=== PATIENT | male | born 1980 | race Caucasian/White ===

== ENCOUNTER 2022-07-07 15:26 | Observation (INO) ==
[2022-07-07] MEDS ORDERED: DIPHTHERIA/TETANUS ADULT VACCINE 0.5 ML SYRINGE IM ONE (15:48)
[2022-07-07] MEDS ORDERED: CLINDAMYCIN INJ 900 MG/50 ML PREMIX IV STA (15:49)
[2022-07-07] MEDS ORDERED: KETOROLAC 30 MG/1 ML VIAL ONE (16:04)
[2022-07-07 16:07] LABS: Basophils # 0.1 10*3/uL (0.0-0.2); Basophils % 0.5 % (0.0-0.8); Eosinophils # 0.2 10*3/uL (0.0-0.87); Eosinophils % 1.6 % (0.00-10.9); Hematocrit 47.6 VOL% (42.0-52.0); Immature Granulocytes % 0.3 %; Immature Granulocytes Absolute 0.04 #; Lymphocytes # 7.1 10*3/uL (1.4-4.0); Lymphocytes % 55.1 % (21.2-54.2); Mean Corpuscular HGB Conc 35.7 GM/DL (32-36); Mean Corpuscular Volume 91.4 FL (87-102); Mean Platelet Volume 9.8 FL (9.6-12.0); Monocytes # 1.2 10*3/uL (0.11-0.8); Monocytes % 9.3 % (1.7-12.7); Neutrophils % 33.2 % (38.7-73.9); Platelet Count 215 T/CUMM (130-400); Red Blood Count 5.21 MC/CUMM (3.8-5.5); Red Cell Distribution Width 12.3 % (9.3-17.3); White Blood Count 12.9 T/CUMM (4-12)
[2022-07-07] MEDS ORDERED: KETOROLAC 30 MG/1 ML VIAL IV STA (16:27)
[2022-07-07 16:33] LABS: Eosinophils 1 % (0-10); Lymphocytes 57 % (20-55); Platelet Estimate Adequate; Total Cells Counted 100
[2022-07-07] MEDS ORDERED: HYDROmorphone 1 MG/1 ML SYRINGE ONE (16:55)
[2022-07-07] MEDS ORDERED: ONDANSETRON 4 MG/2 ML VIAL ONE (16:55)
[2022-07-07] MEDS ORDERED: ONDANSETRON 4 MG/2 ML VIAL IV PRN (17:01)
[2022-07-07] MEDS ORDERED: ACETAMINOPHEN 325 MG TABLET PO PRN (17:01)
[2022-07-07] MEDS ORDERED: HYDROmorphone 1 MG/1 ML SYRINGE IV STA (17:12)
[2022-07-07] MEDS: DEXTROSE 5% NACL 0.45% 1,000 ML IV SCH (19:00)
[2022-07-07] MEDS: MORPHINE 2 MG/1 ML SYRINGE IV PRN (21:30)
[2022-07-07] MEDS ORDERED: INFLUENZA VIRUS VACCINE 0.5 ML SYRINGE IM ONE (22:01)
[2022-07-07] MEDS: CLINDAMYCIN INJ 600 MG/50 ML PREMIX IV SCH (23:08)
[2022-07-08] MEDS: MORPHINE 2 MG/1 ML SYRINGE IV PRN ×5 (02:09→22:15)
[2022-07-08] MEDS: CLINDAMYCIN INJ 600 MG/50 ML PREMIX IV SCH ×4 (04:02→23:01)
[2022-07-08 04:41] LABS: Basophils % 0.2 % (0.0-0.8); Eosinophils % 0.3 % (0.00-10.9); Hematocrit 39.5 VOL% (42.0-52.0); Hemoglobin 14.5 GM/DL (14.0-18.0); Immature Granulocytes % 0.7 %; Immature Granulocytes Absolute 0.06 #; Lymphocytes # 2.1 10*3/uL (1.4-4.0); Lymphocytes % 24.5 % (21.2-54.2); Mean Corpuscular HGB Conc 36.7 GM/DL (32-36); Mean Corpuscular Volume 91.2 FL (87-102); Mean Platelet Volume 10.1 FL (9.6-12.0); Monocytes # 1.2 10*3/uL (0.11-0.8); Monocytes % 14.1 % (1.7-12.7); Neutrophils % 60.2 % (38.7-73.9); Platelet Count 162 T/CUMM (130-400); Red Blood Count 4.33 MC/CUMM (3.8-5.5); Red Cell Distribution Width 12.4 % (9.3-17.3); White Blood Count 8.6 T/CUMM (4-12)
[2022-07-08 05:03] LABS: Calcium 8.5 MG/DL (8.5-10.1); Osmolality,Calculated 287.1 MOS/KG (273-304)
[2022-07-08] MEDS: DEXTROSE 5% NACL 0.45% 1,000 ML IV SCH ×3 (05:23→22:16)
[2022-07-08] MEDS: PANTOPRAZOLE 40 MG TABLET PO SCH (11:01)
[2022-07-08] MEDS ORDERED: ONDANSETRON 4 MG/2 ML VIAL ONE (11:10)
[2022-07-08] MEDS ORDERED: SEVOFLURANE 1 UNIT/15 MINUTE INH ONE (11:10)
[2022-07-08] MEDS ORDERED: LIDOCAINE 2% 5 ML VIAL ONE (11:10)
[2022-07-08] MEDS ORDERED: propofoL 200 MG/20 ML VIAL IV ONE (11:10)
[2022-07-08] MEDS ORDERED: fentaNYL 100 MCG/2 ML VIAL ONE (11:11)
[2022-07-08] MEDS ORDERED: MIDAZOLAM 2 MG/2 ML VIAL ONE (11:11)
[2022-07-08] MEDS ORDERED: MEPERIDINE 25 MG/1 ML VIAL ONE (11:59)
[2022-07-08] MEDS ORDERED: MEPERIDINE 25 MG/1 ML VIAL IV PRN (12:04)
[2022-07-09] MEDS: MORPHINE 2 MG/1 ML SYRINGE IV PRN ×2 (03:04→06:05)
[2022-07-09] MEDS: CLINDAMYCIN INJ 600 MG/50 ML PREMIX IV SCH ×2 (05:02→09:22)
[2022-07-09] MEDS: DEXTROSE 5% NACL 0.45% 1,000 ML IV SCH ×2 (05:54→12:29)
[2022-07-09 07:58] VITALS: BP 121/78
[2022-07-09] MEDS: PANTOPRAZOLE 40 MG TABLET PO SCH (09:22)
== END 2022-07-09 13:20 | disposition home or self-care (01) ==
LOC: N.EDINP 15:26 → N.ED 15:26 → N.3E 20:51
PROVIDERS: ADMIT Surgery; ATTEND Surgery